=== PATIENT | female | born 2005 | race Caucasian/White ===

== ENCOUNTER 2025-01-20 11:55 | Emergency (ER) | payer SELFPAY ==
--- NOTE | ~2025-01-20 | US_ITS ---
EXAMINATION: US OB <= 14 weeks fetus DATE: 01/20/2025 16:24 INDICATION: Left lower quadrant abdominal pain, nausea and vomiting during first trimester TECHNIQUE: Real-time pelvic ultrasound utilizing both a transvaginal and transabdominal probe was performed. The interpreting radiologist was not present for the study. COMPARISON: None. FINDINGS: The uterus measures 8.2 x 9.7 x 7.4 cm. There is an intrauterine gestational sac. A single fetus is identified. The crown rump length measures 5.5 cm, which correlates with an estimated gestational age of 12 weeks and 0 days. heart motion is identified measuring 156 beats per minute (bpm) by M-mode Doppler. The right ovary measures 3.7 x 3.1 x 1.3 cm. The left ovary is not visualized. There is no free fluid in the pelvis. IMPRESSION: 1. Single living fetus with heart rate of 156 bpm. 2. Gestational age by ultrasound of 12 weeks 0 day(s) +/- 1 week and 1 day with ultrasound estimated date of delivery ([facility]) of 08/04/2025. Reviewed, dictated and finalized at location A. OR SECURITY ANALYST IMPRESSION: 1. Single living fetus with heart rate of 156 bpm. 2. Gestational age by ultrasound of 12 weeks 0 day(s) +/- 1 week and 1 day wit h ultrasound estimated date of delivery ([facility]) of 08/04/2025.
[2025-01-20 12:00] VITALS: BP 116/78; PULSE 101; RESP 18; TEMP 36.4; O2SAT 100
[2025-01-20] MEDS: METOCLOPRAMIDE HCL INJ 10 MG/2 ML VIAL IV PUSH (12:25)
[2025-01-20 12:34] LABS: Hematocrit 35.9 % (37.0-47.0); Hemoglobin 12.4 g/dL (12.0-15.0); Immature Granulocyte Percent A 0.3 % (0-0.5); Lymphocytes Absolute Auto 1.93 K/mm3 (0.9-3.2); Mean Corpuscular HGB Conc 34.5 g/dl (32-36); Mean Corpuscular Hemoglobin 30.0 pg (26-34); Mean Corpuscular Volume 86.7 fl (80-100); Nucleated Red Blood Cells Absolute Auto 0.000 K/mm3 (0.0-0.012); Nucleated Red Blood Cells Perc 0.0 % (0.0-0.2); Platelet Count Result 279 k/mm3 (150-375); Red Blood Count 4.14 M/mm3 (4.2-5.4); White Blood Count 8.9 K/mm3 (4.5-10.0)
[2025-01-20 12:43] LABS: Add Urine Microscopic? YES; Appearance Urine Cloudy (Clear); Glucose Urine UA Negative (Negative); Leukocyte Esterase Ur 3+ LEU/UL (Negative); Nitrate Urine Negative (Negative); Non Pathogenic Casts 0-2; Specific Grav Ur 1.027 (1.001-1.035)
[2025-01-20 13:03] LABS: Alanine Aminotransferase 12 U/L (6-35); Albumin Level 4.2 g/dL (3.5-5.1); Alkaline Phosphatase 72 U/L (38-126); Anion Gap 8 mmol/L (4-12); Aspartate Amino Transferase 21 U/L (14-36); Bilirubin,Total 0.5 mg/dL (0.2-1.3); Blood Urea Nitrogen 8 mg/dL (7-17); Calcium 9.2 mg/dL (8.4-10.2); Carbon Dioxide 23 mmol/L (22-30); Chloride 103 mmol/L (98-107); Estimated CRCL calculation 168 ml/min; Estimated Glomerular Filt Rate > 60; Glucose 78 mg/dL (65-110); Lipase 26 U/L (23-300); Potassium 3.8 mmol/L (3.4-5.0); Sodium 134 mmol/L (137-145); Total Protein 7.4 g/dL (6.3-8.2)
--- NOTE | 2025-01-20 15:42 | ED_ITS ---
HPI - Nausea/Vomiting/Diarrhea General Chief complaint: Nausea/Vomiting/Diarrhea <Devora Montiel PA-C - Last Filed: 01/20/25 15:46> Stated complaint: 11 weeks , vomiting <Devora Montiel PA-C - Last Filed: 01/20/25 15:46> Time Seen by Provider: 01/20/25 15:42 <Devora Montiel PA-C - Last Filed: 01/20/25 15:46> Focused HPI: Patient is a 19 y/o female who presents to the ED with c/o N/V. Reports persistent vomiting since 7am this morning. Tried taking zofran at home w/o improvement. Patient is currently 11 weeks, 4 days gestation. . Does not currently have an OB as she does not have insurance. Denies significant abdominal pain or cramping. Denies vaginal bleeding. Denies dysuria or hematuria. Patient received Benadryl/reglan in triage, but still reporting persistent N/V. GENERAL: Well-appearing, obese with BMI of 32.9, and in no acute distress. HEAD: Normocephalic, atraumatic. CHEST: Clear to auscultation. ?No respiratory distress. HEART: Regular rate and rhythm.? ABD: Mild TTP in LLQ, no rebound. NEURO: ?Alert and oriented x3. Patient screened in triage and initial orders placed.? ?Additional care and disposition to be based upon?diagnostic testing and treatment. <Devora Montiel PA-C - Last Filed: 01/20/25 15:46> Source: patient <Devora Montiel PA-C - Last Filed: 01/20/25 15:46> Mode of arrival: ambulatory <Devora Montiel PA-C - Last Filed: 01/20/25 15:46> Limitations: no limitations <JUAN Powell Last Filed: 01/20/25 15:46> History of Present Illness HPI Narrative: I agree with the above HPI <Dayton Smith MD - Last Filed: 01/20/25 22:54> Related Data Allergies/Adverse reactions: Allergies Allergy/AdvReac Type Severity Reaction Status Date / Time amoxicillin AdvReac Vomiting Verified 01/20/25 12:24 <Devora Montiel PA-C - Last Filed: 01/20/25 15:46> Review of Systems 2 Review of Systems: All systems reviewed & are unremarkable except as noted in HPI and below <Dayton Smith MD - Last Filed: 01/20/25 22:54> Exam 2 Narrative: APPEARANCE: Well appearing, no pain, no distress, well-nourished. HEAD: normocephalic, atraumatic. EYES: PERRLA/EOMI, conjunctivae clear. NOSE: Normal no drainage EARS:TMS clear with good light reflex. THROAT: Pharynx clear, no exudate. NECK: Supple. No adenopathy, no masses. RESPIRATORY: Airway patent, respirations nonlabored. Clear to auscultation bilaterally, no rales, rhonchi, wheezing. CARDIOVASCULAR: Regular rate and rhythm without murmurs rubs or gallops. ABDOMINAL: Soft, nontender, nondistended, normal bowel sounds MUSCULOSKELETAL: Moves all extremities. Strength/ROM intact, No edema, No calf tenderness. NEURO: Alert. Cranial nerves II through XII intact. Grossly intact SKIN: Warm, dry. Normal Color <Dayton Smith MD - Last Filed: 01/20/25 22:54> Course Vital Signs Vital signs: Vital Signs Temperature 97.6 F 01/20/25 12:00 Pulse Rate 101 H 01/20/25 12:00 Respiratory Rate 18 01/20/25 12:00 Blood Pressure 116/78 01/20/25 12:00 Pulse Oximetry 100 01/20/25 12:00 Oxygen Delivery Room Air 01/20/25 12:00 Temperature 97.9 F 01/20/25 19:28 Pulse Rate 73 01/20/25 19:28 Respiratory Rate 19 01/20/25 19:28 Blood Pressure 119/74 01/20/25 19:28 Pulse Oximetry 99 01/20/25 19:28 Oxygen Delivery Room Air 01/20/25 12:00 <Devora Montiel PA-C - Last Filed: 01/20/25 15:46> Vital Signs Temperature 97.6 F 01/20/25 12:00 Pulse Rate 101 H 01/20/25 12:00 Respiratory Rate 18 01/20/25 12:00 Blood Pressure 116/78 01/20/25 12:00 Pulse Oximetry 100 01/20/25 12:00 Oxygen Delivery Room Air 01/20/25 12:00 Temperature 97.9 F 01/20/25 19:28 Pulse Rate 73 01/20/25 19:28 Respiratory Rate 19 01/20/25 19:28 Blood Pressure 119/74 01/20/25 19:28 Pulse Oximetry 99 01/20/25 19:28 Oxygen Delivery Room Air 01/20/25 12:00 <Dayton Smith MD - Last Filed: 01/20/25 22:54> MDM - Nausea/Vomiting/Diarrhea MDM Narrative Medical decision making narrative: MSE by RADHA in triage. <Devora Montiel PA-C - Last Filed: 01/20/25 15:46> MSE by RADHA in triage. 19-year-old female that is approximately 12 weeks presenting to the emergency department for evaluation of nausea vomiting diarrhea. Patient was treated with L of lactated Ringer's and 4 of IV Zofran. At time of evaluation patient does feel improved. Patient is currently afebrile with no leukocytosis hemoglobin of 12.4. No acute abnormalities on her CMP patient's beta hCG is 73,000. Urine was positive for urinary tract infection. Urine cultures ordered and patient was started on Macrobid. Patient was also provided Zofran for nausea control. Was provided outpatient follow-up with Ob. All questions concerns were addressed patient was well-appearing at time of discharge. Patient denies any vaginal bleeding vaginal discharge or lower abdominal pain. < Dayton Smith MD - Last Filed: 01/20/25 22:54> Differential Diagnosis Differential diagnosis: Likely other (Hyper cyst gravidarum, enteritis, dehydration, UTI) <Dayton Smith MD - Last Filed: 01/20/25 22:54> Lab Data Attestation: I reviewed the patient's lab results. <Dayton Smith MD - Last Filed: 01/20/25 22:54> Result diagrams: 01/20/25 12:21 01/20/25 12:21 <Devora Montiel PA-C - Last Filed: 01/20/25 15:46> Labs: Lab Results 01/20/25 Range/Units 12:21 WBC 8.9 (4.5-10.0) K/mm3 RBC 4.14 L (4.2-5.4) M/mm3 Hgb 12.4 (12.0-15.0) g/dL Hct 35.9 L (37.0-47.0) % MCV 86.7 (80-100) fl MCH 30.0 (26-34) pg MCHC 34.5 (32-36) g/dl RDW 13.7 (11.5-14.5) % Plt Count 279 (150-375) k/mm3 MPV 8.6 (7.4-10.4) fl Immature Gran % (Auto) 0.3 (0-0.5) % Neut % (Auto) 72.0 (45.5-73.1) % Lymph % (Auto) 21.6 (18.3-44.2) % [place] % (Auto) 4.5 (2.6-8.5) % Eos % (Auto) 1.0 (0-4.4) % Baso % (Auto) 0.6 (0.2-1.2) % Lymph # (Auto) 1.93 (0.9-3.2) K/mm3 [place] # (Auto) 0.4 (0.1-0.6) K/mm3 Eos # (Auto) 0.1 (0-0.3) K/mm3 Baso # (Auto) 0.1 (0.0-0.1) K/mm3 Abs Immat Gran (auto) 0.03 (0.00-0.031) K/mm3 Absolute Neuts (auto) 6.4 (1.3-6.7) K/mm3 Absolute Nucleated RBC 0.000 (0.0-0.012) K/mm3 Nucleated RBC % 0.0 (0.0-0.2) % Sodium 134 L (137-145) mmol/L Potassium 3.8 (3.4-5.0) mmol/L Chloride 103 (98-107) mmol/L Carbon Dioxide 23 (22-30) mmol/L Anion Gap 8 (4-12) mmol/L BUN 8 (7-17) mg/dL Creatinine 0.45 L (0.7-1.0) mg/dL Estim Creat Clear Calc 168 ml/min Estimated GFR > 60 (59 - ) Glucose 78 (65-110) mg/dL Calcium 9.2 (8.4-10.2) mg/dL Total Bilirubin 0.5 (0.2-1.3) mg/dL AST 21 (14-36) U/L ALT 12 (6-35) U/L Alkaline Phosphatase 72 (38-126) U/L Total Protein 7.4 (6.3-8.2) g/dL Albumin 4.2 (3.5-5.1) g/dL Lipase 26 (23-300) U/L Beta HCG, Quant 39393.00 mIU/ML Urine Color Yellow (Yellow) Urine Appearance Cloudy H (Clear) Urine pH 5.5 (5.0-9.0) Ur Specific Roe 1.027 (1.001-1.035) Urine Protein Trace (Negative) mg/dL Urine Glucose (UA) Negative (Negative) mg/dL Urine Ketones 4+ H (Negative) mg/dL Ur Blood (Man) Negative (Negative) Urine Nitrate Negative (Negative) Urine Bilirubin Negative (Negative) Urine Urobilinogen 1.0 (<2.0) mg/dL Leukocyte Esterase Rfl 3+ H (Negative) BAILEE/UL Urine RBC 0-2 (0-2) /hpf Urine WBC 21-50 H (0-3) /hpf Ur Squamous Epith Cells Moderate (Few) /hpf Urine Bacteria 3+ H /hpf Urine Casts 0-2 <Devora Montiel PA-C - Last Filed: 01/20/25 15:46> Lab Results 01/20/25 Range/Units 12:21 WBC 8.9 (4.5-10.0) K/mm3 RBC 4.14 L (4.2-5.4) M/mm3 Hgb 12.4 (12.0-15.0) g/dL Hct 35.9 L (37.0-47.0) % MCV 86.7 (80-100) fl MCH 30.0 (26-34) pg MCHC 34.5 (32-36) g/dl RDW 13.7 (11.5-14.5) % Plt Count 279 (150-375) k/mm3 MPV 8.6 (7.4-10.4) fl Immature Gran % (Auto) 0.3 (0-0.5) % Neut % (Auto) 72.0 (45.5-73.1) % Lymph % (Auto) 21.6 (18.3-44.2) % [place] % (Auto) 4.5 (2.6-8.5) % Eos % (Auto) 1.0 (0-4.4) % Baso % (Auto) 0.6 (0.2-1.2) % Lymph # (Auto) 1.93 (0.9-3.2) K/mm3 [place] # (Auto) 0.4 (0.1-0.6) K/mm3 Eos # (Auto) 0.1 (0-0.3) K/mm3 Baso # (Auto) 0.1 (0.0-0.1) K/mm3 Abs Immat Gran (auto) 0.03 (0.00-0.031) K/mm3 Absolute Neuts (auto) 6.4 (1.3-6.7) K/mm3 Absolute Nucleated RBC 0.000 (0.0-0.012) K/mm3 Nucleated RBC % 0.0 (0.0-0.2) % Sodium 134 L (137-145) mmol/L Potassium 3.8 (3.4-5.0) mmol/L Chloride 103 (98-107) mmol/L Carbon Dioxide 23 (22-30) mmol/L Anion Gap 8 (4-12) mmol/L BUN 8 (7-17) mg/dL Creatinine 0.45 L (0.7-1.0) mg/dL Estim Creat Clear Calc 168 ml/min Estimated GFR > 60 (59 - ) Glucose 78 (65-110) mg/dL Calcium 9.2 (8.4-10.2) mg/dL Total Bilirubin 0.5 (0.2-1.3) mg/dL AST 21 (14-36) U/L ALT 12 (6-35) U/L Alkaline Phosphatase 72 (38-126) U/L Total Protein 7.4 (6.3-8.2) g/dL Albumin 4.2 (3.5-5.1) g/dL Lipase 26 (23-300) U/L Beta HCG, Quant 37645.00 mIU/ML Urine Color Yellow (Yellow) Urine Appearance Cloudy H (Clear) Urine pH 5.5 (5.0-9.0) Ur Specific Roe 1.027 (1.001-1.035) Urine Protein Trace (Negative) mg/dL Urine Glucose (UA) Negative (Negative) mg/dL Urine Ketones 4+ H (Negative) mg/dL Ur Blood (Man) Negative (Negative) Urine Nitrate Negative (Negative) Urine Bilirubin Negative (Negative) Urine Urobilinogen 1.0 (<2.0) mg/dL Leukocyte Esterase Rfl 3+ H (Negative) BAILEE/UL Urine RBC 0-2 (0-2) /hpf Urine WBC 21-50 H (0-3) /hpf Ur Squamous Epith Cells Moderate (Few) /hpf Urine Bacteria 3+ H /hpf Urine Casts 0-2 <Dayton Smith MD - Last Filed: 01/20/25 22:54> Imaging Data Radiologist's impression: Impressions Ultrasound 01/20/25 16:28 IMPRESSION: 1. Single living fetus with heart rate of 156 bpm. 2. Gestational age by ultrasound of 12 weeks 0 day(s) +/- 1 week and 1 day with ultrasound estimated date of delivery ([facility]) of 08/04/2025. <Dayton Smith MD - Last Filed: 01/20/25 22:54> Discharge Plan Discharge Clinical Impression: Nausea and vomiting during , UTI (urinary tract infection) during <Devora Montiel PA-C - Last Filed: 01/20/25 15:46> Patient Disposition: Home <Devora Montiel PA-C - Last Filed: 01/20/25 15:46> Condition: Stable <Devora Montiel PA-C - Last Filed: 01/20/25 15:46> Instructions: Antibiotic Form, Acute Nausea and Vomiting (ED) <JUAN Powell Last Filed: 01/20/25 15:46> Additional Instructions: Antibiotic as directed until completed. Zofran as needed for nausea control. Have close follow-up with your primary care physician and with OB Gyne. <Devora Montiel PA-C - Last Filed: 01/20/25 15:46> Patient Language: Belarusian <Devora Montiel PA-C - Last Filed: 01/20/25 15:46> Prescriptions: New ondansetron 4 mg tablet,disintegrating 4 mg PO Q8H PRN (Reason: nausea and vomiting) Qty: 14 0RF nitrofurantoin monohyd/m-cryst [Macrobid] 100 mg capsule 100 mg PO Q12H 5 Days Qty: 10 0RF Rx Instructions: must administer with a meal/food <Devora Montiel PA-C - Last Filed: 01/20/25 15:46> Follow-up/Referrals: Red Pino MD [Physician, [employer]] PHYSICIAN NOT ON STAFF,NONSTAFF [Non-Staff] <JUAN Powell Last Filed: 01/20/25 15:46>
--- NOTE | 2025-01-20 16:11 | PC.NURSE ---
Patient did not answer page for vitals
[2025-01-20 16:12] VITALS: BP 122/76; PULSE 76; RESP 18; TEMP 36.6; O2SAT 100
[2025-01-20] MEDS: SODIUM CHLORIDE 0.9% IV 1,000 ML 999 ML IV CONT (16:51)
[2025-01-20] MEDS: NITROFURANTOIN MONOHYD MACROCR 100 MG CAP PO (17:47)
[2025-01-20] MEDS: ONDANSETRON INJ 4 MG/2 ML VIAL IV PUSH (17:48)
[2025-01-20] MEDS: LACTATED RINGERS 1,000 ML 999 ML IV CONT (17:48)
--- OUTSIDE RECORDS SUMMARY | 2025-01-20 19:11 | XMS_ITS | Clinical Summary ---
Author Organization [facility] Address [address] [place] [id number] Care Team Providers Care Production Machinist Name Role Phone None, Provider MD Primary Care Provider Unavaila ble Allergies Active Allergy Reactions Criticality Noted Date Comments Amoxicillin GI Upset 12/14/2024 Medications No known medications Encounters Date Type Department Care Team Description 12/14/2024 2:03 PM CDT - 12/14/2024 4:03 PM CDT Emergency [facility] Emergency Room [address] [place] [address] Test Discharge Disposition: Home or Self Care (Routine Discharge) 12/14/2024 Travel from Last 3 Months Social History Tobacco Use Types Packs/Day Years Used Date Smoking Tobacco: Never Assessed Comments Unknown Sex and Gender Information Value Date Recorded Sex Assigned at Female 12/14/2024 2:15 PM CDT Legal Sex Female 1:58 PM CDT Gender Identity Female 12/14/2024 2:15 PM CDT Sexual Orientation Not on file Last Filed Vital Signs Vital Sign Reading Time Taken Comments Blood Pressure 117/67 12/14/2024 2:03 PM CDT Pulse 99 12/14/2024 2:03 PM CDT Temperature 36.3 C (97.4 F) 12/14/2024 2:03 PM CDT Respiratory Rate 16 12/14/2024 2:03 PM CDT Oxygen Saturation 100% 12/14/2024 2:03 PM CDT Inhaled Oxygen Concentration - - Weight 80.6 kg (177 lb 11.1 oz) 12/14/2024 2:03 PM CDT Height 160 cm (5' 3) 12/14/2024 2:03 PM CDT Body Mass Index 31.48 12/14/2024 2:03 PM CDT Plan of Treatment Health Maintenance Due Date Last Done Comments Cervical Cancer Screening Pap Smear (Age 21 to 29) Every 3 Years 2003 Cervical Cancer Screening 2003 Annual Physical 2006 Meningococcal B Vaccine (2 of 2 - Bexsero SCDM 2-dose series) 11/11/2020 05/11/2020 Hepatitis C 2021 COVID-19 Vaccine ( - season) 2024 2021, 07/05/2020, 06/14/2020 Influenza Adult (#1) 2024 12/05/2021, 12/14/2018, 12/31/2007, Additional history exists DTaP, Tdap and Td Vaccines (8 - Td or Tdap) 07/04/2033 07/05/2023, 10/17/2014, 04/30/2007, Additional history exists Pneumococcal Vaccine: Pediatrics (0 to 5 Years) and At-Risk Patients (6 to 49 Years) Aged Out 11/09/2004, 04/19/2004, 2003, Additional history exists No longer eligible based on patient's age to complete this topic Hepatitis B Vaccines Completed 04/30/2007, 04/19/2004, 04/19/2004, Additional history exists Meningococcal Vaccine Aged Out 10/17/2014 No shiloh lorrie eligible based on patient's age to complete this topic HPV Vaccines Completed 06/14/2017, 07/01, 02/17/2016 Hepatitis A Vaccines Aged Out No long er eligible based on patient's age to complete this topic RSV Immunizations Under 20 Months Aged Out No longer eligible based on patient's age to complete this topic Procedures Procedure Name Priority Date/Time Associated Diagnosis Comments BLOOD TYPING, ABO AND RH STAT 12/14/2024 2:34 PM CDT HC HCG QN STAT 12/14/2024 2:34 PM CDT HC COMPREHENSIVE METABOL PANEL STAT 12/14/2024 2:34 PM CDT HC CBC AUTO W/AUTO DIFF STAT 12/14/2024 2:34 PM CDT HC CULTURE URINE W/COLONY CT STAT 12/14/2024 2:04 PM CDT HC URINALYSIS AUTO W/MICRO STAT 12/14/2024 2:04 PM CDT HC URINE TEST STAT 12/14/2024 2:04 PM CDT from Last 3 Months Results * (ABNORMAL) COMPREHENSIVE METABOLIC PANEL (12/14/2024 2:34 PM CDT) [facility] GLUCOSE 80 70 - 99 MG/DL 12/14/2024 3:24 PM CDT [facility] BUN 9 7 - 18 MG/DL 12/14/2024 3:24 PM CDT [facility] CREATININE S/P/B 0.65 0.55 - 1.02 MG/DL 12/14/2024 3:24 PM CDT [facility] SODIUM S/P/B 134(L) 136 - 145 MMOL/L 12/14/2024 3:24 PM CDT [facility] POTASSIUM S/P/B 4.3 3.5 - 5.1 MMOL/L 12/14/2024 3:24 PM CDT [facility] CHLORIDE S/P/B 102 100 - 108 MMOL/L 12/14/2024 3:24 PM CDT [facility] CO2 26.6 21 - 32 MMOL/L 12/14/2024 3:24 PM CDT [facility] CALCIUM S/P/B 8.6 8.5 - 10.1 MG/DL 12/14/2024 3:23 PM CDT [facility] BILIRUBIN TOTAL S/P/B 0.3 0.2 - 1.2 MG/DL 12/14/2024 3:24 PM CDT [facility] TOTAL PROTEIN S/P/B 6.6 6.4 - 8.2 G/DL 12/14/2024 3:24 PM T [facility] ALBUMIN S/P/B 3.1(L) 3.4 - 5.0 G/DL 12/14/2024 3:24 PM T [facility] AST 10(L) 15 - 37 U/L 12/14/2024 3:24 PM T [facility] ALT 7(L) 14 - 55 U/L 12/14/2024 3:24 PM T [facility] ALKALINE PHOSPHATASE S/P/B 82 50 - 136 U/L 12/14/2024 3:24 PM [facility] ANION GAP 5.4 5 - 15 MMOL/L 12/14/2024 3:24 PM [facility] BUN CREATININE RATIO 13.8 6 - 26 12/14/2024 3:24 PM [facility] A/G RATIO 0.9(L) 1.0 - 2.0 RATIO 12/14/2024 3:24 PM [facility] GFR ESTIMATE >90 >90 ML/MIN/1.7 3 M2 12/14/2024 3:24 PM T [facility] Comment: NOTE: eGFR is not calculated for patients <18 years of age. This is an estimated GFR calculation using the new CKD EPI creatinine equation without race and so does not require a correction factor for race. This estimated GFR should not be used for calculating drug doses. 12/14/2024 2:34 PM CDT us Carmelo Aguero MD LABORATORY Final Result [facility] [address] [place] [address], [place] [phone] * (ABNORMAL) Quantitative HCG (12/14/2024 2:34 PM CDT) Pathologist [facility] [place] HCG QUANTITATIVE 24,071(H) 0 - 6 MIU/ML 12/14/2024 3:23 PM CDT [facility] Comment: WEEKS OF REFERENCE RANGES NON- FEMALE 0-6 0.2 - 1 5 - 50 1 - 2 50 - 500 2 - 3 100 - 5000 3 - 4 500 - 10,000 4 - 5 1000 - 50,000 5 - 6 10,000 - 100,000 6 - 8 15,000 - 200,000 2 - 3 MONTHS 10,000 - 100,000 12/14/2024 2:34 PM CDT us Carmelo Aguero MD LABORATORY Final Result Performing Organization Address [facility]/ZIP Co de Phone Number [facility] [address] [place] [address], [place] [phone] * BLOOD TYPING, ABO AND RH (12/14/2024 2:34 PM CDT) Pathologist [facility] [place] ABO/RH A POSITIVE 12/14/2024 3:31 PM CDT [facility] 12/14/2024 2:34 PM CDT us Carmelo Aguero MD BLOOD BANK TEST ORDERABLES F inal Result [facility] [address] [place] [address], [place] [phone] * (ABNORMAL) CBC W/DIFF AUTOMATED (12/14/2024 2:34 PM CDT) [facility] WBC 7.05 4.4 - 11.0 x10'3/uL 12/14/2024 2:41 PM CDT [facility] RBC 4.20(L) 4.50 - 5.10 x10'6/uL 12/14/2024 2:41 PM CDT [facility] HGB 12.3 12.3 - 15.3 G/DL 12/14/2024 2:41 PM [facility] HCT 35.6(L) 35.9 - 44.6 % 12/14/2024 2:41 PM T [facility] MCV 84.8 80.0 - 96.0 FL 12/14/2024 2:41 PM T [facility] MCH 29.3 25.3 - 30.9 PG 12/14/2024 2:41 PM T [facility] MCHC 34.6(H) 31.0 - 34.1 G/DL 12/14/2024 2:41 PM T [facility] RDW 13.2 12.4 - 15.1 % 12/14/2024 2:41 PM T [facility] PLT 308 151 - 353 x10'3/uL 12/14/2024 2:41 PM T [facility] MPV 8.6(L) 9.6 - 12.0 FL 12/14/2024 2:41 PM T [facility] RBC MORPHOLOGY NORMAL 12/14/2024 2:41 PM T [facility] PLT MORPH. NORMAL 12/14/2024 2:41 PM T [facility] WBC MORPHOLOGY NORMAL 12/14/2024 2:41 PM T [facility] LYMPHOCYTES % 38.4 15.8 - 45.0 % 12/14/2024 2:41 PM T [facility] NEUTROPHILS % 50.6 42.1 - 71.9 % 12/14/2024 2:41 PM T [facility] MONOCYTES % 6.0 5.7 - 12.5 % 12/14/2024 2:41 PM CDT [facility] EOSINOPHILS 3.8 0.0 - 5.6 % 12/14/2024 2:41 PM CDT [facility] BASOPHILS 0.9 0.0 - 1.3 % 12/14/2024 2:41 PM CDT [facility] ABS. NEUTROPHILS 3.57 1.40 - 6.00 x10'3/uL 12/14/2024 2:41 PM CDT [facility] IMMATURE GRANS % 0.3 0.0 - 0.5 % 12/14/2024 2:41 PM CDT [facility] ABS. LYMPHOCYTES 2.71 0.80 - 4.70 x10'3/uL 12/14/2024 2:41 PM CDT [facility] 12/14/2024 2:34 PM CDT us Carmelo Aguero MD LABORATORY Final Result [facility] [address] [place] [address], [place] [phone] * (ABNORMAL) TEST URINE (12/14/2024 2:04 PM CDT) URINE HCG TEST POSITIVE( A) NEGATIVE 12/14/2024 2:19 PM CDT [facility] Comment: VERY DILUTE URINE SPECIMENS MAY NOT CONTAIN BUSINESS EDUCATION PROFESSOR LEVELS OF HCG. IF IS STILL SUSPECTED, A SERUM HCG TEST IS RECOMMENDED. URINE SPECIMEN FROM URETHRA / Unknown 12/14/2024 2:04 PM CDT us Carmelo Aguero MD URINE ORDERABLES Final Resul t [facility] [address] [place] [address], [place] [phone] * URINE BACTERIA CULTURE (12/14/2024 2:04 PM CDT) SPEC DESCRIPTION URINE CLEAN CATCH 12/14/2024 3:05 PM CDT [facility] SPECIAL REQUESTS NO SPECIAL REQUEST 12/14/2024 3:05 PM CDT [facility] CULTURE RESULT POLYMICROBIAL GROWTH CONSISTENT WITH NORMAL GENITAL ROXANN. SUSCEPTIBILITIES NOT ROUTINELY PERFORMED. 12/15/2024 8:08 AM CDT [facility] URINE SPECIMEN OBTAINED BY CLEAN CATCH PROCEDURE / Unknown 12/14/2024 2:04 PM CDT 12/14/2024 3:23 PM CDT us Carmelo Aguero MD MICROBIOLOGY - GENERAL ORDER MAURICE Final Result [facility] [address] [place] [address], [place] [phone] [facility] [address] [place] [address], [place] [phone] * (ABNORMAL) URINALYSIS, AUTO, COMPLETE (12/14/2024 2:04 PM CDT) COLOR (U) YELLOW 12/14/2024 2:48 PM CDT [facility] TRANSPARENCY HAZY 12/14/2024 2:48 PM CDT [facility] SPECIFIC GRAVITY (U) 1.020 1.000 - 1.030 12/14/2024 2:48 PM CDT [facility] U PH 7.0 5.0 - 9.0 12/14/2024 2:48 PM CDT [facility] LEUKOCYTES (U) 1+(A) NEGATIVE 12/14/2024 2:48 PM CDT [facility] NITRITES NEGATIVE NEGATIVE 12/14/2024 2:48 PM CDT [facility] PROTEIN RANDOM (U) NEGATIVE NEGATIVE 12/14/2024 2:48 PM CDT [facility] GLUCOSE (U) NEGATIVE NEGATIVE 12/14/2024 2:48 PM CDT [facility] KETONES MG/DL (U) NEGATIVE NEGATIVE 12/14/2024 2:48 PM CDT [facility] BILIRUBIN (U) NEGATIVE NEGATIVE 12/14/2024 2:48 PM CDT [facility] BLOOD (U) NEGATIVE NEGATIVE 12/14/2024 2:48 PM CDT [facility] WBC/HPF 5-10 0 - 5 /HPF 12/14/2024 2:48 PM CDT [facility] RBC/HPF NONE SEEN 0 - 5 /HPF 12/14/2024 2:48 PM CDT [facility] EPI/HPF MODERATE /HPF 12/14/2024 2:48 PM CDT [facility] CRYSTALS (U) FEW /HPF 12/14/2024 2:48 PM CDT [facility] Comment:AMORPHOUS MATERIAL BACTERIA (U) FEW /HPF 12/14/2024 2:48 PM CDT [facility] URINE SPECIMEN OBTAINED BY CLEAN CATCH PROCEDURE / Unknown 12/14/2024 2:04 PM CDT us Carmelo Aguero MD URINE ORDERABLES Final Resul t [facility] [id number] [place] [address], [place] [phone] from Last 3 Months Care Teams Production Machinist Relationship Specialty Start Date End Date None, Provider, PCP - General UNKNOWN PHYSICIAN SPECIALTY 12/14/24
[2025-01-20 19:27] VITALS: BP 119/74; PULSE 73; RESP 19; TEMP 36.6; O2SAT 99
[2025-01-20 19:28] VITALS: BP 119/74; PULSE 73; RESP 19; TEMP 36.6; O2SAT 99
== END 2025-01-20 19:30 | disposition home or self-care (01) ==
LOC: ANHED 19:09
PROVIDERS: Physician Assistant; Emergency Provider Emergency Medicine
DX: O23.41 Unspecified infection of urinary tract in pregnancy, first trimester (principal); N39.0 Urinary tract infection, site not specified; Z3A.12 12 weeks gestation of pregnancy
CPT/HCPCS: 36415; 76801; 80053; 81001; 83690; 84702; 85025; 96361; 96374; 96375; 99284; A9270; J1200; J2405; J2765; J7030; J7120